=== PATIENT | female | born 1970 | race African-American/Black ===

== ENCOUNTER 2016-09-04 12:57 | Emergency (ER) | payer OTHER ==
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
== END 2016-09-04 14:53 | disposition home or self-care (01) ==
LOC: CFTX 12:57 → CED 12:57 → CFTX 14:35
DX: S22.32XA Fracture of one rib, left side, initial encounter for closed fracture (principal); Z87.891 Personal history of nicotine dependence; S53.401A Unspecified sprain of right elbow, initial encounter; V43.52XA Car driver injured in collision with other type car in traffic accident, initial encounter
CPT/HCPCS: 72100; 73080; 73562; 99284